=== PATIENT | female | born 1950 | race Caucasian/White ===

== ENCOUNTER → 2020-03-04 11:09 | Outpatient (BNVA) | payer MEDICARE, SELFPAY | PROVIDERS: PCP Internal Medicine; Visit Provider Hospitalist | DX: Z13.89 Encounter for screening for other disorder (principal) | CPT/HCPCS: Q3014 ==

== ENCOUNTER → 2020-03-15 14:43 | Outpatient (BNVA) | payer MEDICARE, SELFPAY | PROVIDERS: PCP Internal Medicine; Visit Provider Hospitalist | DX: U07.1 COVID-19 (principal); J40 Bronchitis, not specified as acute or chronic; J44.9 Chronic obstructive pulmonary disease, unspecified; G47.33 Obstructive sleep apnea (adult) (pediatric); R91.8 Other nonspecific abnormal finding of lung field; Z99.89 Dependence on other enabling machines and devices | CPT/HCPCS: Q3014 ==

== ENCOUNTER → 2020-04-20 11:07 | Outpatient (BNVA) | payer MEDICARE, SELFPAY | PROVIDERS: PCP Internal Medicine; Visit Provider Hospitalist | DX: Z13.89 Encounter for screening for other disorder (principal) | CPT/HCPCS: Q3014 ==

== ENCOUNTER → 2020-10-24 10:19 | Outpatient (BNVA) | payer MEDICARE, SELFPAY | PROVIDERS: PCP Internal Medicine; Visit Provider Hospitalist | DX: J41.0 Simple chronic bronchitis (principal); R91.8 Other nonspecific abnormal finding of lung field; G47.33 Obstructive sleep apnea (adult) (pediatric); Z99.89 Dependence on other enabling machines and devices | CPT/HCPCS: 99212 ==

== ENCOUNTER 2021-09-21 14:02 | Outpatient (REF) | payer MEDICARE, SELFPAY ==
--- NOTE | 2021-09-21 16:19 | PFT_ITS ---
INDICATION: Dyspnea. SPIROMETRY: FEV1 to FVC of 61% with an FEV1 of 1.75 L which is 76% predicted, an FVC of 2.87 L which is 95% predicted. No significant response to bronchodilators noted. Only a mild decrease in maximum voluntary ventilation secondary to likely deconditioning. LUNG VOLUMES: Total lung capacity 102% predicted. DIFFUSION CAPACITY: DLCO 75% predicted. COMPARISON: None. INTERPRETATION: There is a mild obstructive ventilatory defect, consistent with svsq-hc-[id number] COPD. No significant response to bronchodilators noted. Mild decrease in maximum voluntary ventilation secondary to deconditioning. Lung volumes are normal. The patient does have a mild diffusion impairment secondary to underlying parenchymal lung disease. Clinical correlation is warranted. Ector Howell MD MR/MODL / [id number]
== END 2021-09-21 14:03 | disposition home or self-care (01) ==
LOC: HO.RESP 14:02
PROVIDERS: PCP Internal Medicine; Visit Provider Hospitalist
DX: J41.0 Simple chronic bronchitis (principal); R06.00 Dyspnea, unspecified
CPT/HCPCS: 94060; 94727; 94729; 99212

== ENCOUNTER 2021-09-25 14:14 | Outpatient (REF) | payer MEDICARE, SELFPAY ==
--- NOTE | ~2021-09-25 | CT_ITS ---
EXAMINATION: CT CHEST WITHOUT CONTRAST CLINICAL INFORMATION: Simple chronic bronchitis COMPARISON: Reports from previous chest x-rays 2010 and 2013. Images not available for comparison. TECHNIQUE: Multidetector volumetric CT imaging of the chest was done. Axial MIP volume rendering provided. Sagittal and coronal reformatted images were obtained. This CT examination was performed using dose optimization techniques as appropriate, variously including the following: *Automated exposure control *Adjustment of mA and/or kV according to patient size (this includes techniques or standardized protocols for targeted exams where dose is matched to indication/reason for exam; i.e. extremities or head) *Use of iterative reconstruction technique DLP: 169 mGy-cm FINDINGS: LUNGS: There is bronchial wall thickening and clustered small peribronchial nodules and increased attenuation in the right middle lobe suggestive of airways disease. There are several clustered calcified nodules in the lingula, largest calcified nodules measuring 8 to 9 mm versus 1 versus 1 partially calcified nodule. Measured as 1 nodule this measures 0.8 x 1.2 cm coronal reconstructed image 31. There is atelectasis, mild bronchial wall thickening and clustered small peribronchial nodules in the lingula suggestive of airways disease. No evidence of emphysema. No endobronchial or endotracheal lesion. MEDIASTINUM: The mediastinum is normal. PLEURA: There is no pleural effusion. No pleural mass or thickening. AXILLA: No lymphadenopathy. UPPER ABDOMEN: There is fatty infiltration liver. There is a 2.5 cm cyst high in the dome of the liver OSSEOUS STRUCTURES: There are degenerative changes spine. CT/CT chest wo con IMPRESSION: Airways disease in the right middle lobe and lingula. Several clustered calcified nodules in the lingula versus 1 partially calcified nodule. Hamartoma and old granulomatous disease should be considered. Chest CT follow-up in one year recommended. Fleischner guidelines were followed.
== END 2021-09-25 14:15 | disposition home or self-care (01) ==
LOC: HO.CT 14:14
PROVIDERS: PCP Internal Medicine; Visit Provider Hospitalist
DX: J41.0 Simple chronic bronchitis (principal)
CPT/HCPCS: 71250

== ENCOUNTER → 2022-08-08 14:29 | Outpatient (BNVA) | payer MEDICARE, SELFPAY | PROVIDERS: PCP Internal Medicine; Visit Provider Nurse Practitioner Family | DX: J41.0 Simple chronic bronchitis (principal); G47.33 Obstructive sleep apnea (adult) (pediatric); Z99.89 Dependence on other enabling machines and devices | CPT/HCPCS: 99212 ==

== ENCOUNTER 2022-09-12 09:58 | Outpatient (REF) | payer MEDICARE, SELFPAY ==
--- NOTE | ~2022-09-12 | CT_ITS ---
EXAMINATION: CT CHEST WITHOUT CONTRAST CLINICAL INFORMATION: 71-year-old female with history of nonspecific abnormal finding of lung. COMPARISON: Chest CT from 09/25/2021. TECHNIQUE: Multidetector volumetric CT imaging of the chest was done. Axial MIP volume rendering provided. Sagittal and coronal reformatted images were obtained. This CT examination was performed using dose optimization techniques as appropriate, variously including the following: *Automated exposure control *Adjustment of mA and/or kV according to patient size (this includes techniques or standardized protocols for targeted exams where dose is matched to indication/reason for exam; i.e. extremities or head) *Use of iterative reconstruction technique DLP: 171 mGy-cm FINDINGS: LUNGS AND PLEURA: Mild centrilobular emphysema. Scattered foci of endobronchial mucus are present in both lungs. Chronic volume loss and peripheral opacities of scarring or atelectasis are present within the right middle lobe. Chronic mild atelectasis in inferior aspect of the lingula adjacent to the distal major fissure. There are stable mild subpleural reticular opacities in lower lung zones. An old stable cluster of calcified nodules within the inferior lingula is present, including focus measuring 0.8 cm AP (image 352, series 5), consistent with sequela of remote infection. A stable 0.3 cm noncalcified nodule is present in this region of the lingula (image 335, series 5). Also, a stable 0.3 cm solid noncalcified nodules present in the left lower lobe (image 277, series 5). No interval development of a suspicious lung nodule, mass or pleural effusion. CARDIOVASCULAR: The heart size is normal. No pericardial effusion. Pulmonary arteries and thoracic aorta are normal in caliber. CORONARY ARTERY CALCIFICATION: There is minimal atherosclerotic calcification of the left anterior descending coronary artery. MEDIASTINUM AND LOWER NECK: No mediastinal mass. The esophagus is unremarkable. There appear to be a few old small nodules and/or small foci of calcification of left thyroid lobe. No evidence of a clinically significant nodule. No thyroid imaging follow-up recommended.. LYMPHATICS: No pathologic sized lymph nodes. UPPER ABDOMEN: Diffuse hepatic steatosis. 2.8 cm simple cyst of hepatic segment 4A. SKELETAL AND CHEST WALL: Multilevel mild and moderate discovertebral degenerative change of the visualized lower cervical and thoracic spine. No acute or suspicious osseous abnormality. CT/CT chest wo IV con IMPRESSION: * Mild pulmonary emphysema. * Stable pulmonary nodules are compatible with sequela of remote infection/inflammation. No interval development of a suspicious lung nodule, mass or lymphadenopathy. * Diffuse hepatic steatosis.
== END 2022-09-12 09:59 | disposition home or self-care (01) ==
LOC: HO.CT 09:58
PROVIDERS: PCP Internal Medicine; Visit Provider Hospitalist
DX: R91.8 Other nonspecific abnormal finding of lung field (principal)
CPT/HCPCS: 71250

== ENCOUNTER 2022-09-25 14:11 | Outpatient (AMB) | payer MEDICARE, SELFPAY ==
[2022-09-25 14:16] VITALS: BP 128/70; PULSE 73; O2SAT 95; BMI 30.9
--- NOTE | 2022-09-25 14:16 | A.OFFVIS_ITS ---
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 She does have pulmonary nodules are being followed as well. Her last CT scan of the chest was back in September 2018 which appeared to be unchanged from before. Although the nodules are greater than a cm in size. In addition to that she has been taking the Symbicort the Spiriva. This combination has been very effective for her. She does have a rescue inhaler that she uses specially if is having humid has any difficulty with her breathing. Sometimes when she is exercising she has to use it. However, a bigger concern is that she is describing some heartburn-like symptoms specially when she is exercising and swimming. Symptoms may be lasting just minutes sometimes associated with some sour taste in her mouth to the some reflux. However, with her exercise-induced symptoms and her age and risk factors is not on reasonable to consider doing a cardiac stress test at this time. In regards to her CPAP the CPAP therapy has been affecting beneficial. She does use it for more than 4 hours a night. I did request a download and her AHI is down below 1 in appears to be working very good. We will not change her current settings of 4-18 APAP. 03/03/2020 the patient has a telephone visit today. She is under the weather. She started developing chills in addition to a croupy cough along with GI symptoms. Symptoms are suspicious for COVID-19. Her does live with her, but he was fully vaccinated and does not have any symptoms at this time. She was tested last night for COVID-19. She still waiting for the results. In the meantime she continues use her CPAP. CPAP therapy continues to be affecting beneficial. She did have to increase the humidity a little bit. At this point we talked about taking additional vitamins in addition to zinc in the patient be started on doxycycline for a postviral bacterial infection with worsening cough. If her COVID-19 test is positive, then, the patient is to call me will see if we can arrange for monoclonal antibody since the patient is considered high risk with respiratory condition. In addition to that she did have a CT scan of the chest in October 2019 demonstrating stable pulmonary nodules which is reassuring. 03/14/2020 the patient has a virtual visit today. She is status post mono clonal antibiotics for the COVID-19 infection. She did have significant symptoms with headaches fevers and chills right after the effusion. She also completed the dose of doxycycline. She has noticed increased coughing with chest congestion. Moderate severity. She has not been using her nebulizer or her rescue inhaler. I did advise her to do so because of the virus could be activating her COPD. Patient also was given a prescription for Decadron that she started this morning. She was concerned about starting a 2nd antibiotic, Augmentin. I have reassured her that were still treating her for postviral bacterial infections. She try the Augmentin for couple days and see if she can not tolerated. I also had her start Tessalon Perles to see if that alleviates her cough to some degree. The patient is almost out of cord team. When she has had according team she is able to get blood work and a chest x-ray. In the meantime if she notices any decreasing her pulse oximeter she has to go to the ER to be further evaluated. She did check her pulse ox this morning and later on today and she has been maintained pulse ox in the high 90s which is reassuring. Otherwise she is without any other complaints. 04/20/2020 the patient has a telephone visit. Overall she is feeling a lot better. She is slowly recovering. She still has some degree of fatigue. She gets very tired all of a sudden falls asleep during the daytime. She is starting to walk outside and exercise. She continues use her respiratory therapy she no longer needs her short-acting beta agonists regularly and just using it as needed. She did have an elevated D-dimer and did undergo a CT scan of the chest which is reassuring without any evidence of any thromboembolic disease. She continues use of melatonin at nighttime with good effect. She is also using the CPAP at nighttime. The CPAP therapy continues to be affecting beneficial. She does use it for more than 4 hours a night. In addition to that she is using aspirin 81 mg that she can feel comfortable stopping at this time. The patient is wondering about getting vaccinated now that she is getting better from does having COVID-19. I advised her to wait 3 months and then recheck antibiotics and see if she still has some. If she does she can hold off for a month or 2 to get vaccinated. She does not have any antibodies that she get vaccinated prior to any trips. She does have a trip planned to [place] in May. 10/24/2020 the patient is here for a pulmonary follow-up visit. She has been describing increasing shortness of breath with activity. [id number]-[id number] severity. She does continue to use her Symbicort and Spiriva which she has used for many years. They do provide some relief. She feels like she has recovered from the COVID infection that she had back in the late winter. She continues use her CPAP at nighttime. The CPAP therapy continues to be effective in beneficial. She is getting a dry mouth. This is likely from opening up her mouth and getting dry mucous membranes. She understands that this can result in gingival dryness in his to DKA. Therefore she needs to start using a chin strap. In addition to that I will adjust her humidity once able. I will provide the patient with a coupon for a free trial for Trelegy inhaler in the pes that she can try the inhaler and get more respiratory relief. We also reviewed her CT scan of the chest that she had back in March 2020. she has underlying pulmonary nodules. And does have been present for many years. Will plan to follow-up in 6 months with PFTs. I which point will discuss her follow- up CT scan. 09/21/2021 the patient is here for a pulmonary follow-up visit. We had switched her over to Trelegy inhaler during the last visit. She felt like her breathing got worse. She responded better to her Symbicort and Spiriva and she wishes to return to that treatment. She did undergo pulmonary function studies which we personally reviewed. It appears that she does have a moderate obstructive ventilatory defect consistent moderate COPD. All the pretty stable. She does have a mild diffusion impairment as well due to the underlying airway condition. She does have pulmonary nodules. Her last CT scan was back in March 2020. At this point will be reasonable to repeat her CT scans is wearing more than a year. 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 We have to make sure that this has not gotten any worse. Treatment for the mycobacterial disease only if the patient becomes symptomatic or if there is worsening findings on the CT scan. The patient continues use her CPAP. The CPAP therapy continues to be affecting beneficial. She does use it more than 4 hours a night. She is happy with her mask right now we do not have to make any changes at this time. Her DME company, [employer] has been very helpful in getting her supplies regularly. 09/25/2022 the patient is here for pulmonary follow-up visit. Overall the patient has been complaining of increasing shortness of breath. She has been using the Symbicort along with Spiriva. She has been having to use her rescue inhaler once or twice a week. She has not required any prednisone. The patient did have a CT scan of the chest recently which we personally reviewed. It appears that she has stable airspace disease. No significant changes in pulmonary nodule size. In regards of her sleep apnea she has been having issues which she is waking up more while using the CPAP. Feels like the CPAP is not working as effectively. She has had the CPAP now for more than 8 years. I did try to get some download information but is no longer transmitting information. Therefore, the patient does need to get a replacement CPAP at this time. will request form from her current DME company. The patient does travel she does have a travel mini resmed machine which is very effective for her when she travels. [facility] Medical History (Updated 09/21/21 @ 23:36 by Ector Howell MD) COPD (chronic obstructive pulmonary disease) COVID-19 GERD (gastroesophageal reflux disease) LUIS on CPAP Pulmonary nodules Social History Patient Tobacco Use Status: Never used Tobacco Review of Systems Const Denies chills, Reports difficulty sleeping, Denies excessive sweating, Denies fever(s) and Denies night sweats Eyes Denies dry eyes, Denies irritation and Denies itchy eyes ENT Reports Normal hearing present, Denies nasal discharge and Denies post nasal drip Card Denies chest pain, Denies chest pain at rest, Denies chest pain with activity, Denies leg edema, Denies dyspnea, Reports dyspnea on exertion, Denies orthopnea and Denies paroxysmal nocturnal dyspnea Resp Denies chest congestion, Reports cough, Denies excessive phlegm production, Denies pain on inspiration, Denies pain with cough, Denies dyspnea, Reports dyspnea on exertion, Denies stridor and Reports wheezing Musc Denies myalgias Neuro Reports Normal hearing present Endo Denies excessive sweating Ronald/Lymph Denies lymphadenopathy Aller/Immun Denies itchy eyes, Denies seasonal rhinorrhea and Reports wheezing Physical Exam Vital Signs: Last Vital Signs Pulse 73 09/25/22 14:16 BP 128/70 09/25/22 14:16 Pulse Ox 95 09/25/22 14:16 Oxygen Delivery Method Room Air 09/25/22 14:16 BMI result Body Mass Index 30.9 Const General: cooperative, healthy appearing, comfortable, no acute distress, well developed and alert Orientation/consciousness: patient oriented x3 Limitations: no limitations HEENT Head: Yes normal to inspection, Yes normocephalic and Yes atraumatic Ears: hearing grossly normal bilaterally and external ears normal Eyes General: appearance normal, both eyes and all related structures Eyelids: Yes eyelids normal Sclerae: sclerae normal EOM: EOMs intact bilaterally Neck Neck: Yes normal visual inspection and Yes no lymphadenopathy Lymphatic: no lymphadenopathy noted Chest Chest palpation & inspection: normal inspection of the chest Resp Effort & Inspection: normal respiratory effort, able to speak in complete sentences, no stridor, not tachypneic, no tripod positioning and no use of accessory muscles Auscultation: no wheezes and diminished lung sounds Cardio Jugular venous distension: no JVD Rate: regular rate Rhythm: regular rhythm Skin Other: warm, dry General skin exam: no rashes or lesions noted Neuro General: patient oriented x3 Cranial nerves: Yes Normal hearing present Cognition (Neuro): normal cognition Gait exam (Neuro): Normal gait present Extrem General: Yes normal to inspection, Yes capillary refill normal, Yes no clubbing, cyanosis or edema and Yes no pedal edema Psych Appearance: grossly normal and well kempt Speech and movement: Normal speech and movement present and Clear speech present Affect: normal affect Attitude: cooperative Thought process: Normal thought process present Thought content: Normal thought content present Insight: Good insight present (Psych) Judgement: Good judgement present (Psych) Assessment & Plan Assessment & Plan (1) COPD (chronic obstructive pulmonary disease): Code(s): J44.9 - Chronic obstructive pulmonary disease, unspecified Qualifiers: COPD type: chronic bronchitis Chronic bronchitis type: simple Qualified Code(s): J41.0 - Simple chronic bronchitis (2) LUIS on CPAP: Code(s): G47.33 - Obstructive sleep apnea (adult) (pediatric); Z99.89 - Dependence on other enabling machines and devices (3) Pulmonary nodules: Code(s): R91.8 - Other nonspecific abnormal finding of lung field Plan stop Symbicort and Spiriva start Breztri 2puff BID JESE as needed Continue APAP, with chin strap. will need a replacement APAP. Her machine is more than 8 years old and no longer working appropiately nor transmitting information. F/U 1 year Medications: New qbmqqidete-efpfvpqb-rapitpculr 160-9-4.8 mcg/actuation (Breztri Aerosphere) 2 inhalations inhalation BID 30 days 10.7 grams 11RF Coding Level of Care Code Est Pt Level 4 (21472) Diagnoses COPD (chronic obstructive pulmonary disease) J41.0 COPD type: chronic bronchitis Chronic bronchitis type: simple LUIS on CPAP G47.33; Z99.89 Pulmonary nodules R91.8 Time Spent (min) 20
== END 2022-09-25 14:56 | disposition home or self-care (01) ==
PROVIDERS: PCP Internal Medicine; Visit Provider Hospitalist
DX: J41.0 Simple chronic bronchitis (principal); G47.33 Obstructive sleep apnea (adult) (pediatric); Z99.89 Dependence on other enabling machines and devices; R91.8 Other nonspecific abnormal finding of lung field
CPT/HCPCS: 99214

== ENCOUNTER → 2022-09-25 14:11 | Outpatient (BNVA) | payer MEDICARE, SELFPAY | PROVIDERS: PCP Internal Medicine; Visit Provider Hospitalist | DX: J41.0 Simple chronic bronchitis (principal); G47.33 Obstructive sleep apnea (adult) (pediatric); R91.8 Other nonspecific abnormal finding of lung field | CPT/HCPCS: 99212 ==

== ENCOUNTER 2023-03-25 14:22 | Outpatient (AMB) | payer MEDICARE, SELFPAY ==
--- NOTE | 2023-03-25 14:31 | A.OFFVIS_ITS ---
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 She does have pulmonary nodules are being followed as well. Her last CT scan of the chest was back in September 2018 which appeared to be unchanged from before. Althou gh the nodules are greater than a cm in size. In addition to that she has been taking the Symbicort the Spiriva. This combination has been very effective for her. She does have a rescue inhaler that she uses specially if is having humid has any difficulty with her breathing. Sometimes when she is exercising she has to use it. However, a bigger concern is that she is describing some heartburn- like symptoms specially when she is exercising and swimming. Symptoms may be lasting just minutes sometimes associated with some sour taste in her mouth to the some reflux. However, with her exercise-induced symptoms and her age and risk factors is not on reasonable to consider doing a cardiac stress test at this time. In regards to her CPAP the CPAP therapy has been affecting beneficial. She does use it for more than 4 hours a night. I did request a download and her AHI is down below 1 in appears to be working very good. We will not change her current settings of 4-18 APAP. 03/03/2020 the patient has a telephone v GLG today. She is under the weather. She started developing chills in addition to a croupy cough along with GI symptoms. Symptoms are suspicious for COVID-19. Her does live with her, but he was fully vaccinated and does not have any symptoms at this time. She was tested last night for COVID-19. She still waiting for the results. In the meantime she continues use her CPAP. CPAP therapy continues to be affecting beneficial. She did have to increase the humidity a little bit. At this point we talked about taking additional vitamins in addition to zinc in the patient be started on doxycycline for a postviral bacterial infection with worsening cough. If her COVID-19 test is positive, then, the patient is to call me will see if we can arrange for monoclonal antibody since the patient is considered high risk with respiratory condition. In addition to that she did have a CT scan of the chest in October 2019 demonstrating stable pulmonary nodules which is reassuring. 03/14/2020 the patient has a virtual visit today. She is status post mono clonal antibiotics for the COVID-19 infection. She did have significant symptoms with headaches fevers and chills right after the effusion. She also completed the dose of doxycycline. She has noticed increased coughing with chest congestion. Moderate severity. She has not been using her nebulizer or her rescue inhaler. I did advise her to do so because of the virus could be activating her COPD. Patient also was given a prescription for Decadron that she started this morning. She was concerned about starting a 2nd antibiotic, Augmentin. I have reassured her that were still treating her for postviral bacterial infections. She try the Augmentin for couple days and see if she can not tolerated. I also had her start Tessalon Perles to see if that alleviates her cough to some degree. The patient is almost out of cord team. When she has had according team she is able to get blood work and a chest x-ray. In the meantime if she notices any decreasing her pulse oximeter she has to go to the ER to be further evaluated. She did check her pulse ox this morning and later on today and she has been maintained pulse ox in the high 90s which is reassuring. Otherwise she is without any other complaints. 04/20/2020 the patient has a telephone v isit. Overall she is feeling a lot better. She is slowly recovering. She still has some degree of fatigue. She gets very tired all of a sudden falls asleep during the daytime. She is starting to walk outside and exercise. She continues use her respiratory therapy she no longer needs her short-acting beta agonists regularly and just using it as needed. She did have an elevated D-dimer and did undergo a CT scan of the chest which is reassuring without any evidence of any thromboembolic disease. She continues use of melatonin at nighttime with good effect. She is also using the CPAP at nighttime. The CPAP therapy continues to be affecting beneficial. She does use it for more than 4 hours a night. In addition to that she is using aspirin 81 mg that she can feel comfortable stopping at this time. The patient is wondering about getting vaccinated now that she is getting better from does having COVID-19. I advised her to wait 3 months and then recheck antibiotics and see if she still has some. If she does she can hold off for a month or 2 to get vaccinated. She does not have any antibodies that she get vaccinated prior to any trips. She does have a trip planned to [place] in May. 10/24/2020 the patient is here for a pulmonary follow-up visit. She has been describing increasing shortness of breath with activity. [id number] severity. She does continue to use her Symbicort and Spiriva which she has used for many years. They do provide some relief. She feels like she has recovered from the COVID infection that she had back in the late winter. She continues use her CPAP at nighttime. The CPAP therapy continues to be effective in beneficial. She is getting a dry mouth. This is likely from opening up her mouth and getting dry mucous membranes. She understands that this can result in gingival dryness in his to DKA. Therefore she needs to start using a chin strap. In addition to that I will adjust her humidity once able. I will provide the patient with a coupon for a free trial for Trelegy inhaler in the hopes that she can try the inhaler and get more respiratory relief. We also reviewed her CT scan of the chest that she had back in March 2020. she has underlying pulmonary nodules. And does have been present for many years. Will plan to follow-up in 6 months with PFTs. I which point will discuss her follow- up CT scan. 09/21/2021 the patient is here for a pulmonary follow-up visit. We had switched her over to Trelegy inhaler during the last visit. She felt like her breathing got worse. She responded better to her Symbicort and Spiriva and she wishes to return to that treatment. She did undergo pulmonary function studies which we personally reviewed. It appears that she does have a moderate obstructive ventilatory defect consistent moderate COPD. All the pretty stable. She does have a mild diffusion impairment as well due to the underlying airway condition. She does have pulmonary nodules. Her last CT scan was back in March 2020. At this point will be reasonable to repeat her CT scans is wearing more than a year. 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 We have to make sure that this has not gotten any worse. Treatment for the mycobacterial disease only if the patient becomes symptomatic or if there is worsening findings on the CT scan. The patient continues use her CPAP. The CPAP therapy continues to be affecting beneficial. She does use it more than 4 hours a night. She is happy with her mask right now we do not have to make any changes at this time. Her DME company, [employer] has been very helpful in getting her supplies regularly. 09/25/2022 the patient is here for pulmonary follow-up visit. Overall the patient has been complaining of increasing shortness of breath. She has been using the Symbicort along with Spiriva. She has been having to use her rescue inhaler once or twice a week. She has not required any prednisone. The patient did have a CT scan of the chest recently which we personally reviewed. It appears that she has stable airspace disease. No significant changes in pulmonary nodule size. In regards of her sleep apnea she has been having issues which she is waking up more while using the CPAP. Feels like the CPAP is not working as effectively. She has had the CPAP now for more than 8 years. I did try to get some download information but is no longer transmitting information. Therefore, the patient does need to get a replacement CPAP at this time. will request form from her current DME company. The patient does travel she does have a travel mini resmed machine which is very effective for her when she travels. 03/25/2023 the patient is here for pulmon reid follow-up visit. Overall she is doing very well. The patient has been using her new APAP. The APAP AirSense 11 has not very affecting beneficial. Her AHI is down to 1.4. Her average pressure is close to 8.4 cm of water. She does average more than 4 hours a night. The therapy again has been affecting beneficial. The patient also continues have shortness breath with activity and cough. She has underlying chronic bronchitis and also COPD. She does well on Spiriva although is very expensive and not covered under her insurance. She did try Trelegy and also tried respiratory inhaler that was not effective for her. Therefore, she will go ahead and stick with the Spiriva and the Symbicort for now. The patient also had a CT scan of the chest last back in September 2022 which we personally reviewed and compared to the CT scan from 2021. She does have nodular disease bilaterally primarily in the lingula and also in the right middle lobe area. This is likely suggestive of smoldering infectious that she is mycobacterial disease. Will have her get further sputum samples from microbiology. The patient should have a repeat CT scan September 2023 to follow-up with the nodules. In the meantime she is going to continue with the current respiratory therapy and she will provide us with a sputum culture. [facility] Medical History (Updated 09/21/21 @ 23:36 by Ector Howell MD) COVID-19 LUIS on CPAP Pulmonary nodules GERD (gastroesophageal reflux disease) COPD (chronic obstructive pulmonary disease) Social History Patient Tobacco Use Status: Never used Tobacco Review of Systems Const Denies chills, Reports difficulty sleeping, Denies excessive sweating, Denies fever(s) and Denies night sweats Eyes Denies dry eyes, Denies irritation and Denies itchy eyes ENT Reports Normal hearing present, Denies nasal discharge and Denies post nasal drip Card Denies chest pain, Denies chest pain at rest, Denies chest pain with activity, Denies leg edema, Denies dyspnea, Reports dyspnea on exertion, Denies orthopnea and Denies paroxysmal nocturnal dyspnea Resp Denies chest congestion, Reports cough, Denies excessive phlegm production, Den ies pain on inspiration, Denies pain with cough, Denies dyspnea, Reports dyspnea on exertion, Denies stridor and Reports wheezing Musc Denies myalgias Neuro Reports Normal hearing present Endo Denies excessive sweating Ronald/Lymph Denies lymphadenopathy Aller/Immun Denies itchy eyes, Denies seasonal rhinorrhea and Reports wheezing Physical Exam Vital Signs: Last Vital Signs Pulse 69 03/25/23 14:32 BP 124/70 03/25/23 14:32 Pulse Ox 96 03/25/23 14:32 Oxygen Delivery Method Room Air 03/25/23 14:32 BMI result Body Mass Index 29.2 Const General: cooperative, healthy appearing, comfortable, no acute distress, well developed and alert Orientation/consciousness: patient oriented x3 Limitations: no limitations HEENT Head: Yes normal to inspection, Yes normocephalic and Yes atraumatic Ears: hearing grossly normal bilaterally and external ears normal Eyes General: appearance normal, both eyes and all related structures Eyelids: Yes eyelids normal Sclerae: sclerae normal EOM: EOMs intact bilaterally Neck Neck: Yes normal visual inspection and Yes no lymphadenopathy Lymphatic: no lymphadenopathy noted Chest Chest palpation & inspection: normal inspection of the chest Resp Effort & Inspection: normal respiratory effort, able to speak in complete sentences, no stridor, not tachypneic, no tripod positioning and no use of accessory muscles Auscultation: no wheezes and diminished lung sounds Cardio Jugular venous distension: no JVD Rate: regular rate Rhythm: regular rhythm Skin Other: warm, dry General skin exam: no rashes or lesions noted Neuro General: patient oriented x3 Cranial nerves: Yes Normal hearing present Cognition (Neuro): normal cognition Gait exam (Neuro): Normal gait present Extrem General: Yes normal to inspection, Yes capillary refill normal, Yes no clubbing, cyanosis or edema and Yes no pedal edema Psych Appearance: grossly normal and well kempt Speech and movement: Normal speech and movement present and Clear speech present Affect: normal affect Attitude: cooperative Thought process: Normal thought process present Thought content: Normal thought content present Insight: Good insight present (Psych) Judgement: Good judgement present (Psych) Results Reviewed Results Reviewed: [place] [id number] CT Scan Report Signed Patient: Jessica Moreno MR#: [id number] : 1950 Acct:[id number] Age/Sex: 71 / F ADM Date: 09/12/22 Loc: HO.CT Attending Dr: Ector Howell MD Ordering Physician: Georgette Black NP Date of Service: 09/12/22 Procedure(s): CT chest wo IV con Accession Number(s): [id number] cc: Georgette Black NP~ EXAMINATION: CT CHEST WITHOUT CONTRAST CLINICAL INFORMATION: 71-year-old female with history of nonspecific abnormal finding of lung. COMPARISON: Chest CT from 09/25/2021. TECHNIQUE: Multidetector volumetric CT imaging of the chest was done. Axial MIP volume rendering provided. Sagittal and coronal reformatted images were obtained. This CT examination was performed using dose optimization techniques as appropriate, variously including the following: *Automated exposure control *Adjustment of mA and/or kV according to patient size (this includes techniques or standardized protocols for targeted exams where dose is matched to indication/reason for exam; i.e. extremities or head) *Use of iterative reconstruction technique DLP: 171 mGy-cm FINDINGS: LUNGS AND PLEURA: Mild centrilobular emphysema. Scattered foci of endobronchial mucus are present in both lungs. Chronic volume loss and peripheral opacities of scarring or atelectasis are present within the right middle lobe. Chronic mild atelectasis in inferior aspect of the lingula adjacent to the distal major fissure. There are stable mild subpleural reticular opacities in lower lung zones. An old stable cluster of calcified nodules within the inferior lingula is present, including focus measuring 0.8 cm AP (image 352, series 5), consistent with sequela of remote infection. A stable 0.3 cm noncalcified nodule is present in this region of the lingula (image 335, series 5). Also, a stable 0.3 cm solid noncalcified nodules present in the left lower lobe (image 277, series 5). No interval development of a suspicious lung nodule, mass or pleural effusion. CARDIOVASCULAR: The heart size is normal. No pericardial effusion. Pulmonary arteries and thoracic aorta are normal in caliber. CORONARY ARTERY CALCIFICATION: There is minimal atherosclerotic calcification of the left anterior descending coronary artery. MEDIASTINUM AND LOWER NECK: No mediastinal mass. The esophagus is unremarkable. There appear to be a few old small nodules and/or small foci of calcification of left thyroid lobe. No evidence of a clinically significant nodule. No thyroid imaging follow-up recommended.. LYMPHATICS: No pathologic sized lymph nodes. UPPER ABDOMEN: Diffuse hepatic steatosis. 2.8 cm simple cyst of hepatic segment 4A. SKELETAL AND CHEST WALL: Multilevel mild and moderate discovertebral degenerative change of the visualized lower cervical and thoracic spine. No acute or suspicious osseous abnormality. CT/CT chest wo IV con IMPRESSION: * Mild pulmonary emphysema. * Stable pulmonary nodules are compatible with sequela of remote infection/inflammation. No interval development of a suspicious lung nodule, mass or lymphadenopathy. * Diffuse hepatic steatosis. Dictated By: Nilesh De Santiago MD Signed By: <Electronically signed by Nilesh De Santiago MD in OV> 09/18/22 0944 DD/ 1139 TD/TT: Rubber Chemist: Assessment & Plan Assessment & Plan (1) COPD (chronic obstructive pulmonary disease): Code(s): J44.9 - Chronic obstructive pulmonary disease, unspecified Qualifiers: COPD type: chronic bronchitis Chronic bronchitis type: simple Qualified Code(s): J41.0 - Simple chronic bronchitis (2) LUIS on CPAP: Code(s): G47.33 - Obstructive sleep apnea (adult) (pediatric); Z99.89 - Dependence on other enabling machines and devices (3) Pulmonary nodules: Code(s): R91.8 - Other nonspecific abnormal finding of lung field Plan continue Symbicort and Spiriva JESE as needed Continue APAP, with chin strap. sputum cx / AFB cx CT chest 09/2023 F/U September 2023 Orders: Orders Acid-fast Culture + Smear Today J44.9 - Chronic obstructive pulmonary disease, unspecified CT chest wo IV con 09/13/23 R91.8 - Other nonspecific abnormal finding of lung field Sputum Cult + Gram stain Today J44.9 - Chronic obstructive pulmonary disease, unspecified Coding Level of Care Code Est Pt Level 4 (58736) Diagnoses Simple chronic bronchitis J41.0 COPD type: chronic bronchitis Chronic bronchitis type: simple LUIS on CPAP G47.33; Z99.89 Pulmonary nodules R91.8 Time Spent (min) 19
[2023-03-25 14:32] VITALS: BP 124/70; PULSE 69; O2SAT 96; BMI 29.2
== END 2023-03-25 15:09 | disposition home or self-care (01) ==
PROVIDERS: PCP Internal Medicine; Visit Provider Hospitalist
DX: J41.0 Simple chronic bronchitis (principal); G47.33 Obstructive sleep apnea (adult) (pediatric); Z99.89 Dependence on other enabling machines and devices; R91.8 Other nonspecific abnormal finding of lung field
CPT/HCPCS: 99214

== ENCOUNTER → 2023-03-25 14:22 | Outpatient (BNVA) | payer MEDICARE, SELFPAY | PROVIDERS: PCP Internal Medicine; Visit Provider Hospitalist | DX: J41.0 Simple chronic bronchitis (principal); R91.8 Other nonspecific abnormal finding of lung field; G47.33 Obstructive sleep apnea (adult) (pediatric); Z99.89 Dependence on other enabling machines and devices | CPT/HCPCS: 99212 ==

== ENCOUNTER 2023-09-18 13:09 | Outpatient (REF) | payer MEDICARE, SELFPAY ==
--- NOTE | ~2023-09-18 | CT_ITS ---
EXAMINATION: CT CHEST WITHOUT CONTRAST CLINICAL INFORMATION: Follow up pulmonary nodules. COMPARISON: Prior CT examinations dated 09/30/2022 and 09/25/2021. TECHNIQUE: Multidetector volumetric CT imaging of the chest was done. Axial MIP volume rendering provided. Sagittal and coronal reformatted images were obtained. This CT examination was performed using dose optimization techniques as appropriate, variously including the following: *Automated exposure control *Adjustment of mA and/or kV according to patient size (this includes techniques or standardized protocols for targeted exams where dose is matched to indication/reason for exam; i.e. extremities or head) *Use of iterative reconstruction technique DLP: 151 mGy-cm FINDINGS: INSURANCE CHECKER: The lungs are symmetrically well-expanded and grossly clear. LUNGS: There is a grouping of numerous small tree in bud nodules within the right middle lobe, best seen on the MIP projection. These measure approximately 1-3 mm and are noncalcified. Within the posterior lingula, there are coarse benign, calcified granulomas. A few further scattered benign, calcified granulomas are noted within the bilateral lungs, best appreciated on the MIP sequence. This appearance is relatively stable from 09/25/2021. No new nodule, mass, infiltrate or groundglass opacity is seen. There is linear scar/subsegmental atelectasis within the right middle lobe and inferior lingula, without associated focal airway obstruction. No generalized increase is seen in peripheral interlobular septal markings. There is no generalized small airway thickening. The central airways appear patent. MEDIASTINUM: The mediastinum is normal. CORONARY ARTERY CALCIFICATION: None visualized on this study. PLEURA: There is no pleural effusion. No pleural mass or thickening. AXILLA: No lymphadenopathy. UPPER ABDOMEN: Benign, simple hepatic cysts are redemonstrated. These require no imaging follow-up. The adrenal glands are unremarkable. OSSEOUS STRUCTURES: There is multi-level thoracic spondylosis. No acute or aggressive osseous finding is noted. CT/CT chest wo IV con IMPRESSION: 1. There are benign, stable calcified and noncalcified nodules, as detailed. Small noncalcified nodules within the right middle lobe show tree-in-bud arrangements, suggesting small airways or small vessel disease related to an infectious or inflammatory etiology. Please correlate clinically. The interim stability of these findings from 09/25/2021 suggests a benign process. No further imaging follow-up is recommended. According to the UPDATED 2017 Fleischner Society recommendations, the advised follow-up imaging for solid nodules < 6 mm is: LOW RISK PATIENT: No routine follow-up. HIGH RISK PATIENT: Optional CT at 12 months. 2. No new nodule, mass, infiltrate or groundglass opacity is seen. 3. There is linear scar/subsegmental atelectasis at the anterior bases, without associated focal airway obstruction. 4. No thoracic lymphadenopathy or pleural effusion is seen. 5. There is multi-level thoracic spondylosis, without acute or aggressive finding seen. Fleischner guidelines were followed. Electronically signed by: Moris Hylton MD 10/16/2023 12:28 PM EDT
== END 2023-09-18 13:10 | disposition home or self-care (01) ==
LOC: HO.CT 13:09
PROVIDERS: PCP Internal Medicine; Visit Provider Hospitalist
DX: R91.8 Other nonspecific abnormal finding of lung field (principal)
CPT/HCPCS: 71250

== ENCOUNTER 2023-10-03 14:16 | Outpatient (AMB) | payer MEDICARE, SELFPAY ==
[2023-10-03 14:22] VITALS: PULSE 79; O2SAT 95; BMI 29.2
--- NOTE | 2023-10-03 14:22 | MHC.OFFVIS ---
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 She does have pulmonary nodules are being followed as well. Her last CT scan of the chest was back in September 2018 which appeared to be unchanged from before. Although the nodules are greater than a cm in size. In addition to that she has been taking the Symbicort the Spiriva. This combination has been very effective for her. She does have a rescue inhaler that she uses specially if is having humid has any difficulty with her breathing. Sometimes when she is exercising she has to use it. However, a bigger concern is that she is describing some heartburn-like symptoms specially when she is exercising and swimming. Symptoms may be lasting just minutes sometimes associated with some sour taste in her mouth to the some reflux. However, with her exercise-induced symptoms and her age and risk factors is not on reasonable to consider doing a cardiac stress test at this time. In regards to her CPAP the CPAP therapy has been affecting beneficial. She does use it for more than 4 hours a night. I did request a download and her AHI is down below 1 in appears to be working very good. We will not change her current settings of 4-18 APAP. 03/25/2023 the patient is here for pulmonary follow-up visit. Overall she is doing very well. The patient has been using her new APAP. The APAP AirSense 11 has not very affecting beneficial. Her AHI is down to 1.4. Her average pressure is close to 8.4 cm of water. She does average more than 4 hours a night. The therapy again has been affecting beneficial. The patient also continues have shortness breath with activity and cough. She has underlying chronic bronchitis and also COPD. She does well on Spiriva although is very expensive and not covered under her insurance. She did try Trelegy and also tried respiratory inhaler that was not effective for her. Therefore, she will go ahead and stick with the Spiriva and the Symbicort for now. The patient also had a CT scan of the chest last back in September 2022 which we personally reviewed and compared to the CT scan from 2021. She does have nodular disease bilaterally primarily in the lingula and also in the right middle lobe area. This is likely suggestive of smoldering infectious that she is mycobacterial disease. Will have her get further sputum samples from microbiology. The patient should have a repeat CT scan September 2023 to follow-up with the nodules. In the meantime she is going to continue with the current respiratory therapy and she will provide us with a sputum culture. 10/03/2023 the patient is here for a pulmonary follow-up visit. Overall the patient has been doing okay. She has been also active with exercise swimming and playing pickleball and walking. Sometimes she does have to use her rescue inhaler. She has noticed that she has had to use a little bit more often typically around twice a week. She sometimes pretreated before her pickleball tournaments. The patient also continues on the Symbicort. She is doing 1 puff of the Spiriva. In view of her ongoing symptoms she is going to maximize her respiratory therapy by increasing the Spiriva to 2 inhalations daily. We also talked about other potential triple agents but she did not do good with powder and she rather stay on the medications that she is taking since she tolerates it very well. She also had a CT scan of the chest to follow-up with the pulmonary nodules. We personally reviewed in the office in compared to her previous CT scan. No significant changes and no significant changes in the pulmonary nodule which is reassuring. She has had this nodule now for several years identified without any significant changes. Likely mycobacterial disease. Will go ahead and request another sputum for AFB and culture. From a CPAP standpoint she is struggling with her mask. She is opening up her mouth she is getting some air leakage. The patient did try a chinstrap was not effective. She needs a fullface mask. Will did provide her with a small F30 I mask. She is going to try and let us know if it works well for her and at that point we can order it for her from her [employer] company. But she does use the machine every night for more than 4 hours with very good adherence of 100%. Her AHI is down to 1.5 and her current settings are adequate. [facility] Medical History (Updated 09/21/21 @ 23:36 by Ector Howell MD) COVID-19 LUIS on CPAP Pulmonary nodules GERD (gastroesophageal reflux disease) COPD (chronic obstructive pulmonary disease) Social History Patient Tobacco Use Status: Never used Tobacco Review of Systems Const Denies chills, Reports difficulty sleeping, Denies excessive sweating, Denies fever(s) and Denies night sweats Eyes Denies dry eyes, Denies irritation and Denies itchy eyes ENT Reports Normal hearing present, Denies nasal discharge and Denies post nasal drip Card Denies chest pain, Denies chest pain at rest, Denies chest pain with activity, Denies leg edema, Denies dyspnea, Reports dyspnea on exertion, Denies orthopnea and Denies paroxysmal nocturnal dyspnea Resp Denies chest congestion, Reports cough, Denies excessive phlegm production, Denies pain on inspiration, Denies pain with cough, Denies dyspnea, Reports dyspnea on exertion, Denies stridor and Reports wheezing Musc Denies myalgias Neuro Reports Normal hearing present Endo Denies excessive sweating Ronald/Lymph Denies lymphadenopathy Aller/Immun Denies itchy eyes, Denies seasonal rhinorrhea and Reports wheezing Physical Exam Vital Signs: Last Vital Signs Pulse 79 10/03/23 14:22 Pulse Ox 95 10/03/23 14:22 Oxygen Delivery Method Room Air 10/03/23 14:22 BMI result Body Mass Index 29.2 Const General: cooperative, healthy appearing, comfortable, no acute distress, well developed and alert Orientation/consciousness: patient oriented x3 Limitations: no limitations HEENT Head: Yes normal to inspection, Yes normocephalic and Yes atraumatic Ears: hearing grossly normal bilaterally and external ears normal Eyes General: appearance normal, both eyes and all related structures Eyelids: Yes eyelids normal Sclerae: sclerae normal EOM: EOMs intact bilaterally Neck Neck: Yes normal visual inspection and Yes no lymphadenopathy Lymphatic: no lymphadenopathy noted Chest Chest palpation & inspection: normal inspection of the chest Resp Effort & Inspection: normal respiratory effort, able to speak in complete sentences, no stridor, not tachypneic, no tripod positioning and no use of accessory muscles Auscultation: no wheezes and diminished lung sounds Cardio Jugular venous distension: no JVD Rate: regular rate Rhythm: regular rhythm Skin Other: warm, dry General skin exam: no rashes or lesions noted Neuro General: patient oriented x3 Cranial nerves: Yes Normal hearing present Cognition (Neuro): normal cognition Gait exam (Neuro): Normal gait present Extrem General: Yes normal to inspection, Yes capillary refill normal, Yes no clubbing, cyanosis or edema and Yes no pedal edema Psych Appearance: grossly normal and well kempt Speech and movement: Normal speech and movement present and Clear speech present Affect: normal affect Attitude: cooperative Thought process: Normal thought process present Thought content: Normal thought content present Insight: Good insight present (Psych) Judgement: Good judgement present (Psych) Results Reviewed Results Reviewed: personally reviewed CT chest 09/2023 and compared to previous CT chest. pulmonary nodules are able, chronic airway disease RML/DG areas Assessment & Plan Assessment & Plan (1) COPD (chronic obstructive pulmonary disease): Code(s): J44.9 - Chronic obstructive pulmonary disease, unspecified Category: Medical Qualifiers: COPD type: chronic bronchitis Chronic bronchitis type: simple Qualified Code(s): J41.0 - Simple chronic bronchitis (2) LUIS on CPAP: Code(s): G47.33 - Obstructive sleep apnea (adult) (pediatric); Z99.89 - Dependence on other enabling machines and devices Category: Medical (3) Pulmonary nodules: Code(s): R91.8 - Other nonspecific abnormal finding of lung field Category: Medical (4) Bronchitis: Code(s): J40 - Bronchitis, not specified as acute or chronic Category: Medical Plan continue Symbicort increase Spiriva 1->2puff daily JESE as needed Continue APAP, trial F301 small mask sputum cx / AFB cx CT chest 09/2023 stable/unchanged F/U in 12 months Orders: Orders Acid-fast Culture + Smear Today J40 - Bronchitis, not specified as acute or chronic Sputum Cult + Gram stain Today J40 - Bronchitis, not specified as acute or chronic Coding Level of Care Code Est Pt Level 4 (95144) Complex EM visit Add On G2211 Diagnoses Simple chronic bronchitis J41.0 COPD type: chronic bronchitis Chronic bronchitis type: simple LUIS on CPAP G47.33; Z99.89 Pulmonary nodules R91.8 Bronchitis J40 Time Spent (min) 18
== END 2023-10-03 15:13 | disposition home or self-care (01) ==
PROVIDERS: PCP Internal Medicine; Visit Provider Hospitalist
DX: J41.0 Simple chronic bronchitis (principal); G47.33 Obstructive sleep apnea (adult) (pediatric); Z99.89 Dependence on other enabling machines and devices; R91.8 Other nonspecific abnormal finding of lung field; J40 Bronchitis, not specified as acute or chronic
CPT/HCPCS: 99214; G2211

== ENCOUNTER → 2023-10-03 14:16 | Outpatient (BNVA) | payer MEDICARE, SELFPAY | PROVIDERS: PCP Internal Medicine; Visit Provider Hospitalist | DX: J41.0 Simple chronic bronchitis (principal); G47.33 Obstructive sleep apnea (adult) (pediatric); R91.8 Other nonspecific abnormal finding of lung field; J40 Bronchitis, not specified as acute or chronic; Z99.89 Dependence on other enabling machines and devices | CPT/HCPCS: 99212 ==

== ENCOUNTER 2023-12-20 13:18 | Outpatient (AMB) | payer MEDICARE, SELFPAY ==
--- NOTE | 2023-12-20 13:14 | MHC.OFFVIS ---
Vital Signs 12/20/23 13:19 Height 5 ft 4 in Weight 192 lb 2 oz BMI 33.0 BP 108/62 Blood Pressure Location Rt brachial Position Sitting Pulse 76 Pulse Source Pulse Oximeter Pulse Oximetry (%) 96 Oxygen Delivery Method Room Air Intake Visit Reasons: cough Allergies Avelox Allergy (Severe, Uncoded 12/20/23 13:21) Rash HPI HPI cough: Details: Jessica is a pleasant 71 year old female followed for COPD and LUIS on CPAP therapy. She is well controlled at baseline on Symbicort and Spiriva. She is under the care of Dr. Howell and presents today for an acute visit. She contracted COVID a few weeks ago, mostly with body aches and fatigue, denied respiratory symptoms. However over the last week or two has developed a more persistent dry cough and increased dyspnea, responding well to albuterol. She denies any fevers, chills and reports possible sick contacts. She denies seasonal allergies however reports symptoms suggestive of allergies. She has not trialed any OTC antihistamines or nasal sprays. [facility] Medical History (Updated 12/23/23 @ 17:14 by Georgette Black NP) COVID-19 LUIS on CPAP Pulmonary nodules GERD (gastroesophageal reflux disease) COPD (chronic obstructive pulmonary disease) Social History Patient Tobacco Use Status: Never used Tobacco Review of Systems Const Denies chills, Denies excessive sweating, Denies fever(s), Denies headache(s) and Denies night sweats Eyes Denies dry eyes, Denies irritation and Denies itchy eyes ENT Reports Normal hearing present, Denies headache(s), Denies nasal congestion, Denies nasal discharge and Denies sore throat Card Denies chest pain, Denies chest pain at rest, Denies chest pain with activity, Denies claudication, Denies leg edema, Denies dyspnea, Denies orthopnea and Denies paroxysmal nocturnal dyspnea Resp Denies chest congestion, Denies excessive phlegm production, Denies pain on inspiration, Denies pain with cough, Denies dyspnea, Denies stridor and Denies wheezing Musc Denies myalgias Neuro Reports Normal hearing present and Denies headache(s) Endo Denies excessive sweating Ronald/Lymph Denies lymphadenopathy Aller/Immun Denies itchy eyes, Denies seasonal rhinorrhea and Denies wheezing Physical Exam Vital Signs: Last Vital Signs Pulse 76 12/20/23 13:19 BP 108/62 12/20/23 13:19 Pulse Ox 96 12/20/23 13:19 Oxygen Delivery Method Room Air 12/20/23 13:19 BMI result Body Mass Index 33.0 Const General: cooperative, healthy appearing, comfortable, no acute distress, well developed and alert Nutritional Appearance: obese Orientation/consciousness: patient oriented x3 Limitations: no limitations HEENT Head: Yes normal to inspection, Yes normocephalic and Yes atraumatic Ears: hearing grossly normal bilaterally and external ears normal Eyes General: appearance normal, both eyes and all related structures Eyelids: Yes eyelids normal Sclerae: sclerae normal EOM: EOMs intact bilaterally Neck Neck: Yes normal visual inspection and Yes no lymphadenopathy Lymphatic: no lymphadenopathy noted Chest Chest palpation & inspection: normal inspection of the chest Resp Effort & Inspection: normal respiratory effort, able to speak in complete sentences, no audible wheezes, no cough, no stridor, not tachypneic, no tripod positioning and no use of accessory muscles Auscultation: clear to auscultation bilaterally Cardio Jugular venous distension: no JVD Rate: regular rate Rhythm: regular rhythm Skin Other: warm, dry General skin exam: no rashes or lesions noted Neuro General: patient oriented x3 Cranial nerves: Yes Normal hearing present Cognition (Neuro): normal cognition Gait exam (Neuro): Normal gait present Extrem General: Yes normal to inspection, Yes capillary refill normal, Yes no clubbing, cyanosis or edema and Yes no pedal edema Psych Appearance: grossly normal and well kempt Speech and movement: Normal speech and movement present and Clear speech present Affect: normal affect Attitude: cooperative Thought process: Normal thought process present Thought content: Normal thought content present Insight: Good insight present (Psych) Judgement: Good judgement present (Psych) Assessment & Plan Assessment & Plan (1) COPD (chronic obstructive pulmonary disease): Code(s): J44.9 - Chronic obstructive pulmonary disease, unspecified Category: Medical Qualifiers: COPD type: chronic bronchitis Chronic bronchitis type: simple Qualified Code(s): J41.0 - Simple chronic bronchitis (2) Environmental allergies: Code(s): Z91.09 - Other allergy status, other than to drugs and biological substances Category: Medical Plan At this time, Jessica's symptoms are likely related to an allergic component. Advised to trial nasal spray and daily antihistamine. Patient aware if symptoms do not improve to contact the office. Will follow up with Dr. Howell at her regularly scheduled appointment or sooner if needed. All questions were answered and patient is in agreement of plan. Medications: New ipratropium bromide administer into each nostril 2 sprays intranasal BID 30 mL 3RF tiotropium bromide (Spiriva with HandiHaler) puncture 1 cap using device; one dose = 2 inhalations 1 cap inhalation DAILY 60 inhalations 6RF Refilled albuterol sulfate 90 mcg/actuation 2 puffs inhalation Q4-6H PRN 1 ea 3RF shortness of breath or wheezing albuterol sulfate 2.5 mg (3 mL) inhalation DAILY 90 mL 11RF 30 days J41.0 - Simple chronic bronchitis Coding Level of Care Code Est Pt Level 3 (40594) Diagnoses Simple chronic bronchitis J41.0 COPD type: chronic bronchitis Chronic bronchitis type: simple Environmental allergies Z91.09
[2023-12-20 13:19] VITALS: BP 108/62; PULSE 76; O2SAT 96; BMI 33.0
== END 2023-12-20 13:44 | disposition home or self-care (01) ==
PROVIDERS: PCP Internal Medicine; Visit Provider Nurse Practitioner Family
DX: J41.0 Simple chronic bronchitis (principal); Z91.09 Other allergy status, other than to drugs and biological substances
CPT/HCPCS: 99213

== ENCOUNTER → 2023-12-20 13:18 | Outpatient (BNVA) | payer MEDICARE, SELFPAY | PROVIDERS: PCP Internal Medicine; Visit Provider Nurse Practitioner Family | DX: J41.0 Simple chronic bronchitis (principal); Z91.09 Other allergy status, other than to drugs and biological substances | CPT/HCPCS: 99212 ==

== ENCOUNTER 2024-10-02 11:08 | Outpatient (AMB) | payer MEDICARE, SELFPAY ==
--- OUTSIDE RECORDS SUMMARY | 2024-10-01 23:59 | XMS_ITS | Continuity of Care Document ---
Author Organization [facility] [place] [address] [place] [address]- Care Team Providers Care Special Education Resource Teacher Name Role Phone Yesica Guerrero MD Primary Care Physician [phone] Encounter 09/24/24 - 10/01/24 [facility] [address], [address] [place], [place] [address] Attending Physician: Yesica Guerrero MD Admitting Physician: Yesica Guerrero MD Referring Physician: Yesica Guerrero MD Encounter Type: OutPatient One Time Allergies, Adverse Reactions, Alerts Substance Criticality Severity Reaction Reaction Severity Status moxifloxacin Eruption Active Avelox Active Immunizations Given and Recorded Vaccine Date Status Refusal Reason pneumococcal 20-valent conjugate vaccine 01/27/24 Recorded influenza virus vaccine, inactivated 12/03/23 Delfin rded influenza virus vaccine, inactivated 01/04/23 Delfin rded influenza virus vaccine, inactivated 12/11/21 Delfin rded influenza virus vaccine, inactivated 11/30/20 Delfin rded influenza virus vaccine, inactivated 12/02/18 Delfin rded RSV vaccine preF3, recombinant 01/18/23 Recorded SARS-CoV-2(COVID-19)mRNA-LNP vac([id number]) 01/11/23 Recorded tetanus/diphtheria/pertussis, acel(Tdap) 09/19/22 Recorded [id number] 12y+ bivalent booster vax 01/16/22 Recorded SARS-CoV-2 (COVID-19) mRNA-1273 vaccine 08/09/21 R ecorded SARS-CoV-2 (COVID-19) mRNA BNT-162b2 vac 06/30/20 Recorded SARS-CoV-2 (COVID-19) mRNA BNT-162b2 vac 06/09/20 Recorded zoster vaccine, inactivated 04/03/19 Recorded zoster vaccine, inactivated 12/12/18 Recorded Medications Albuterol (Eqv-ProAir HFA) 90 mcg/inh inhalation aerosol 2 puffs, Inhalation, Every 6 hours, 0 Refills, Maintenance, 04/12/22 10:56:00 AM EST, Partial fill upon patient request if the prescription is for a schedule II opioid drug. Start Date: 04/12/22 Status: Ordered Repeat number: 1 atorvastatin 40 mg oral tablet 1 tablet, By Mouth, Daily, # 90 tablet, 1 Refills, Maintenance, 08/07/24 6:52:00 AM EDT, [id number], 162.56, cm, 06/02/24 9:19:00 EDT, Height Start Date: 08/07/24 Status: Ordered Quantity: 90.0 Unit: tablet Repeat number: 1 Atrovent HFA 17 mcg/inh inhalation aerosol 0 Refills, Maintenance, 08/10/24 10:50:00 AM EDT, Partial fill upon patient request if the prescription is for a schedule II opioid drug. Start Date: 08/10/24 Status: Ordered Repeat number: 1 budesonide-formoterol 160 mcg-4.5 mcg/inh inhalation aerosol with adapter 2, puffs, Inhalation, 2 times a day, X90 DAYS., # 30.6 each, Refills 1, Maintenance, 04/22/24 3:49:00 PM EDT, Route to Pharmacy Electronically, [id number], [id number], 162.56, cm, 03/16/24 12:12:00 EST, Height Start Date: 04/22/24 Status: Ordered Quantity: 30.6 Unit: each Repeat number: 1 CPAP Exhauster, 04/12/22 10:59:00 AM EST, Supply Start Date: 04/12/22 Status: Ordered Repeat number: 1 estradiol 0.05 mg/24 hours weekly transdermal film, extended release 1 patch, Topically, Every week, # 12 patch, 3 Refills, Maintenance, 07/03/24 11:10:00 AM EDT, Patch,[id number], Partial fill upon patient request if the prescription is for a schedule II opioid drug., 162.56, cm, 06/02/24 9:19:00 EDT, Height Start Date: 07/03/24 Status: Ordered Quantity: 12.0 Unit: patch Repeat number: 4 Indications: Hormone replacement therapy; Misc Rx Refills 0, Maintenance, 06/02/24 8:45:00 AM EDT, Supply Start Date: 06/02/24 Status: Ordered Repeat number: 1 progesterone 100 mg oral capsule 1 capsule = 100 mg, By Mouth, Daily at bedtime, # 90 capsule, 2 Refills, Maintenance, 06/02/24 10:20:00 AM EDT, Capsule, [id number], Partial fill upon patient request if the prescription is for a schedule II opioid drug., 162.56, cm, 06/02/24 9:19:00 EDT, Height Start Date: 06/02/24 Status: Ordered Quantity: 90.0 Unit: capsule Repeat number: 3 Indications: Hormone replacement therapy; Spiriva HandiHaler 18 mcg inhalation capsule 1 capsule = 18 mcg, Inhalation, Daily, # 90 capsule, 3 Refills, Maintenance, 11/15/22 4:41:00 PM EDT, [id number], Partial fill upon patient request if the prescription is for a schedule II opioid drug., 162.56, cm, 06/21/22 11:17:00 EDT, Height, 87.5, kg, 06/16/21 11:02:00 EDT, Dry Weight Start Date: 11/15/22 Status: Ordered Quantity: 90.0 Unit: capsule Repeat number: 4 Vitamin D3 2000 intl units oral capsule 1 capsule = 50 mcg, By Mouth, Daily, # 60 capsule, 0 Refills, Maintenance, 04/12/22 11:14:00 AM EST, Capsule, Partial fill upon patient request if the prescription is for a schedule II opioid drug. Start Date: 04/12/22 Status: Ordered Quantity: 60.0 Unit: capsule Repeat number: 1 Problem List Condition Confirmation Course Effective Dates Status Health Status Informant Chronic headaches Confirmed Active Chronic obstructive pulmonary disease Confirmed Active Hormone replacement therapy Confirmed Active Body aches Confirmed Active TYLER (generalized anxiety disorder) Confirmed Active Hypercholesterolemia Confirmed Active IFG (impaired fasting glucose) Confirmed Active Obese class I Confirmed Active Osteopenia Confirmed 05/24/22 Active Colon polyps Confirmed Active Sleep apnea Confirmed Active Fatty liver Confirmed Active Social History Social History Type Response Smoking Status Never (less than 100 in lifetime) entered on: 04/12/22 Sex Sex Representation Female (finding) Patient Care team information Care Team Personnel Name: Yesica Guerrero MD Position: S Physician - Primary Care Member Role: PCP Address: [address] [place] [address] [address] Telecom: Care Team Related Persons Name: SHERI LEACH Name: MILENA CAMERON Insurance Providers Guarantor name: DAWIT CAMERON Health Plan Information #: 1 Payer: MEDICARE B Payer Identifier: JÚNIOR Member Number: [id number] Group Number: [id number] Subscriber Identifier: [id number] Relationship to Subscriber: self Coverage Type: NA Coverage Verification Date: NA Telecom: NA Address: Health Plan Information #: 2 Payer: MEDEX SECONDARY ONLY Payer Identifier: NA Member Number: [id number] Group Number: [id number] Subscriber Identifier: [id number] Relationship to Subscriber: self Coverage Type: Medicare Other Coverage Verification Date: NA Telecom: NA Address:
--- OUTSIDE RECORDS SUMMARY | 2024-10-02 11:12 | XMS_ITS | Clinical Summary ---
Author Organization [facility] Address [address] [place] [id number] Care Team Providers Care Entry Manager Name Role Phone Olga Will MD Primary Care Provider [phone] Surgical History Surgery Date Site/Laterality Comments OTHER SURGICAL HISTORY PROCEDURE: PULMONOLOGY BRONCHOSCOPY; COMMENT: 2016, neg malignancy, + MAC Medical History Medical History Date Comments COPD (chronic obstructive pu lmonary disease) ([facility] V24, [facility] V28) 02/07/2017 DX:COPD (chronic o bstructive pulmonary disease) ([facility]) Lung nodule 02/07/2017 DX:Lung nodule History of sepsis 02/07/2017 DX:History of sepsis Tubular adenoma 02/07/2017 DX:Tubular adeno ma Kidney stone 02/07/2017 DX:Kidney stone Hyperlipidemia 02/07/2017 DX:Hyperlipidemi a Bronchiolitis due to respira tory syncytial virus (RSV) 03/16/2016 DX:Bronchiolitis due to resp iratory syncytial virus (RSV) Mycobacterium avium complex ([facility] V24, [facility] V28) 03/14/2017 DX:Mycobacterium avium compl ex ([facility]) Obstructive sleep apnea synd darion in adult 05/04/2016 DX:Obstructive sleep apnea s yndrome in adult Post-nasal drip 05/28/2017 DX:Post-nasal dr ip History of pneumonia 05/28/2017 DX:History of pneumonia; COMMENT: Requiring hospitalization in 1994 Social History Tobacco Use Types Packs/Day Years Used Date Smoking Tobacco: Never Smokeless Tobacco: Never Comments Unknown Sex and Gender Information Value Date Recorded Sex Assigned at Not on file Legal Sex Female 2:01 AM EST Gender Identity Not on file Sexual Orientation Not on file Obstetrics History Plan of Treatment Health Maintenance Due Date Last Done Comments Breast Cancer Screening 1950 DTaP,Tdap,and Td Vaccines (1 - Tdap) 10/11/1970 Pneumococcal Vaccine: 50+ Ye ars (1 of 1 - PCV) 10/11/2001 Zoster Vaccines (1 of 2) 10/11/2001 COVID-19 Vaccine (1 - 2023-2 5 season) 2023 Depression Screening 02/12/2024 Influenza Vaccine (#1) 2024 RSV Immunization Adult Patie nts (1 - 1-dose 75+ series) 10/11/2026 HIB Vaccines Aged Out No longer eligi ble based on patient's age to complete this topic HPV Vaccines Aged Out No longer eligi ble based on patient's age to complete this topic Hepatitis A Vaccines Aged Out No long er eligible based on patient's age to complete this topic Hepatitis B Vaccines Aged Out No long er eligible based on patient's age to complete this topic IPV Vaccines Aged Out No longer eligi ble based on patient's age to complete this topic MMR Vaccines Aged Out No longer eligi ble based on patient's age to complete this topic Meningococcal ACWY Vaccine Aged Out N o longer eligible based on patient's age to complete this topic Meningococcal B Vaccine Aged Out No l onger eligible based on patient's age to complete this topic RSV Immunization Patients Un ben 20 months Aged Out No longer eligible b ased on patient's age to complete this topic Varicella Vaccines Aged Out No longer eligible based on patient's age to complete this topic Care Teams Entry Manager Relationship Specialty Start Date End Date Olga Will MD [address] [place] [address] PCP - General Internal Medicine 08/07/18
--- OUTSIDE RECORDS SUMMARY | 2024-10-02 11:12 | XMS_ITS | Encounter Summary ---
Author Organization [facility] Address [address] [place] [phone] Phone Care Team Providers Care Tar Heat Exchanger Cleaner Name Role Phone Olga Will MD Primary Care Provider [phone] Encounter Details Date Type Department Care Team (Late st Contact Info) Description 08/22/2017 Procedure Pass [facility] [address] [place] [address] Social History Tobacco Use Types Packs/Day Years Used Date Smoking Tobacco: Never Assessed Comments Unknown Sex and Gender Information Value Date Recorded Sex Assigned at Female 03/06/2020 2:28 PM EST Legal Sex Female 3:03 PM EST Gender Identity Not on file Sexual Orientation Not on file documented as of this encounter Plan of Treatment Not on file documented as of this encounter Visit Diagnoses Not on filedocumented in this encounter Care Teams Tar Heat Exchanger Cleaner Relationship Specialty Start Date End Date Olga Will MD [address] [place] [id number] PCP - General Internal Medicine 03/25/17 documented as of this encounter Additional Source Comments The information contained in this document represents components of the legal health record. It is not the complete legal health record.[facility]
[2024-10-02 11:14] VITALS: BP 114/60; PULSE 69; O2SAT 97; BMI 30.6
--- NOTE | 2024-10-02 11:14 | MHC.OFFVIS ---
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 She does have pulmonary nodules are being followed as well. Her last CT scan of the chest was back in September 2018 which appeared to be unchanged from before. Although the nodules are greater than a cm in size. In addition to that she has been taking the Symbicort the Spiriva. This combination has been very effective for her. She does have a rescue inhaler that she uses specially if is having humid has any difficulty with her breathing. Sometimes when she is exercising she has to use it. However, a bigger concern is that she is describing some heartburn-like symptoms specially when she is exercising and swimming. Symptoms may be lasting just minutes sometimes associated with some sour taste in her mouth to the some reflux. However, with her exercise-induced symptoms and her age and risk factors is not on reasonable to consider doing a cardiac stress test at this time. In regards to her CPAP the CPAP therapy has been affecting beneficial. She does use it for more than 4 hours a night. I did request a download and her AHI is down below 1 in appears to be working very good. We will not change her current settings of 4-18 APAP. 03/25/2023 the patient is here for pulmonary follow-up visit. Overall she is doing very well. The patient has been using her new APAP. The APAP AirSense 11 has not very affecting beneficial. Her AHI is down to 1.4. Her average pressure is close to 8.4 cm of water. She does average more than 4 hours a night. The therapy again has been affecting beneficial. The patient also continues have shortness breath with activity and cough. She has underlying chronic bronchitis and also COPD. She does well on Spiriva although is very expensive and not covered under her insurance. She did try Trelegy and also tried respiratory inhaler that was not effective for her. Therefore, she will go ahead and stick with the Spiriva and the Symbicort for now. The patient also had a CT scan of the chest last back in September 2022 which we personally reviewed and compared to the CT scan from 2021. She does have nodular disease bilaterally primarily in the lingula and also in the right middle lobe area. This is likely suggestive of smoldering infectious that she is mycobacterial disease. Will have her get further sputum samples from microbiology. The patient should have a repeat CT scan September 2023 to follow-up with the nodules. In the meantime she is going to continue with the current respiratory therapy and she will provide us with a sputum culture. 10/03/2023 the patient is here for a pulmonary follow-up visit. Overall the patient has been doing okay. She has been also active with exercise swimming and playing pickleball and walking. Sometimes she does have to use her rescue inhaler. She has noticed that she has had to use a little bit more often typically around twice a week. She sometimes pretreated before her pickleball tournaments. The patient also continues on the Symbicort. She is doing 1 puff of the Spiriva. In view of her ongoing symptoms she is going to maximize her respiratory therapy by increasing the Spiriva to 2 inhalations daily. We also talked about other potential triple agents but she did not do good with powder and she rather stay on the medications that she is taking since she tolerates it very well. She also had a CT scan of the chest to follow-up with the pulmonary nodules. We personally reviewed in the office in compared to her previous CT scan. No significant changes and no significant changes in the pulmonary nodule which is reassuring. She has had this nodule now for several years identified without any significant changes. Likely mycobacterial disease. Will go ahead and request another sputum for AFB and culture. From a CPAP standpoint she is struggling with her mask. She is opening up her mouth she is getting some air leakage. The patient did try a chinstrap was not effective. She needs a fullface mask. Will did provide her with a small F30 I mask. She is going to try and let us know if it works well for her and at that point we can order it for her from her [employer] company. But she does use the machine every night for more than 4 hours with very good adherence of 100%. Her AHI is down to 1.5 and her current settings are adequate. 10/02/2024 the patient is here for a pulmonary follow-up visit. Overall the patient has been doing well. She continues on the Symbicort and the Incruse. Although she did better on the Spiriva. Feel like the Spiriva device was a more effective for her. Unfortunately stopped being covered by insurance any longer. Therefore will keep her on the Symbicort and Incruse. We did talk about other alternatives including Breztri. In addition to that she can also consider using Combivent Respimat device. But right now she is doing well so we are not going to make any changes. Her last CT scan was back in September 2023 demonstrating stable pulmonary nodules. Will plan to repeat a CAT scan in a year's time. Her last PFTs were back from 2021 so therefore next year will also request pulmonary function studies. The patient has been using the CPAP. She is still struggling with the mask. I do believe the nasal pillows will probably be more effective for her. Will go ahead and set her up with [facility] mask clinic so she can look at other alternatives as well. The patient will follow-up in a year's time with a CAT scan and PFTs. If any issues arise prior to that she will call for further recommendations. [facility] Medical History (Updated 12/23/23 @ 17:14 by Georgette Black NP) COVID-19 LUIS on CPAP Pulmonary nodules GERD (gastroesophageal reflux disease) COPD (chronic obstructive pulmonary disease) Social History Patient Tobacco Use Status: Never used Tobacco Review of Systems Const Denies chills, Reports difficulty sleeping, Denies excessive sweating, Denies fever(s) and Denies night sweats Eyes Denies dry eyes, Denies irritation and Denies itchy eyes ENT Reports Normal hearing present, Denies nasal discharge and Denies post nasal drip Card Denies chest pain, Denies chest pain at rest, Denies chest pain with activity, Denies leg edema, Denies dyspnea, Reports dyspnea on exertion, Denies orthopnea and Denies paroxysmal nocturnal dyspnea Resp Denies chest congestion, Reports cough, Denies excessive phlegm production, Denies pain on inspiration, Denies pain with cough, Denies dyspnea, Reports dyspnea on exertion, Denies stridor and Reports wheezing Musc Denies myalgias Neuro Reports Normal hearing present Endo Denies excessive sweating Ronald/Lymph Denies lymphadenopathy Aller/Immun Denies itchy eyes, Denies seasonal rhinorrhea and Reports wheezing Physical Exam Vital Signs: Last Vital Signs Pulse 69 10/02/24 11:14 BP 114/60 10/02/24 11:14 Pulse Ox 97 10/02/24 11:14 Oxygen Delivery Method Room Air 10/02/24 11:14 BMI result Body Mass Index 30.6 Const General: cooperative, healthy appearing, comfortable, no acute distress, well developed and alert Orientation/consciousness: patient oriented x3 Limitations: no limitations HEENT Head: Yes normal to inspection, Yes normocephalic and Yes atraumatic Ears: hearing grossly normal bilaterally and external ears normal Eyes General: appearance normal, both eyes and all related structures Eyelids: Yes eyelids normal Sclerae: sclerae normal EOM: EOMs intact bilaterally Neck Neck: Yes normal visual inspection and Yes no lymphadenopathy Lymphatic: no lymphadenopathy noted Chest Chest palpation & inspection: normal inspection of the chest Resp Effort & Inspection: normal respiratory effort, able to speak in complete sentences, no stridor, not tachypneic, no tripod positioning and no use of accessory muscles Auscultation: no wheezes and diminished lung sounds Cardio Jugular venous distension: no JVD Rate: regular rate Rhythm: regular rhythm Skin Other: warm, dry General skin exam: no rashes or lesions noted Neuro General: patient oriented x3 Cranial nerves: Yes Normal hearing present Cognition (Neuro): normal cognition Gait exam (Neuro): Normal gait present Extrem General: Yes normal to inspection, Yes capillary refill normal, Yes no clubbing, cyanosis or edema and Yes no pedal edema Psych Appearance: grossly normal and well kempt Speech and movement: Normal speech and movement present and Clear speech present Affect: normal affect Attitude: cooperative Thought process: Normal thought process present Thought content: Normal thought content present Insight: Good insight present (Psych) Judgement: Good judgement present (Psych) Assessment & Plan Assessment & Plan (1) COPD (chronic obstructive pulmonary disease): Code(s): J44.9 - Chronic obstructive pulmonary disease, unspecified Category: Medical Qualifiers: COPD type: chronic bronchitis Chronic bronchitis type: simple Qualified Code(s): J41.0 - Simple chronic bronchitis (2) LUIS on CPAP: Code(s): G47.33 - Obstructive sleep apnea (adult) (pediatric); Z99.89 - Dependence on other enabling machines and devices Category: Medical (3) Pulmonary nodules: Code(s): R91.8 - Other nonspecific abnormal finding of lung field Category: Medical Plan continue Symbicort continue Incruse (Spiriva not covered) JESE as needed Continue APAP, Will reques mask clinic with [facility] to find a better fitting mask PFTs next yr CT chest next yr F/U in 12 months Orders: Orders PFT pulmonary function test 08/11/25 R91.8 - Other nonspecific abnormal finding of lung field CT chest wo IV con 08/11/25 R91.8 - Other nonspecific abnormal finding of lung field Medications: Changed From umeclidinium 62.5 mcg/actuation (Incruse Ellipta) 1 inh inhalation DAILY 30 days 30 ea 11RF J45.909 - Unspecified asthma, uncomplicated To umeclidinium 62.5 mcg/actuation (Incruse Ellipta) 1 inh inhalation DAILY 90 ea 3RF 90 days J45.909 - Unspecified asthma, uncomplicated From albuterol sulfate 90 mcg/actuation 2 inhalations inhalation Q6H PRN To albuterol sulfate 90 mcg/actuation 2 inhalations inhalation Q6H PRN 1 ea 11RF shortness of breath or wheezing 30 days Coding Level of Care Code Est Pt Level 4 (32168) Complex EM visit Add On G2211 Diagnoses Simple chronic bronchitis J41.0 COPD type: chronic bronchitis Chronic bronchitis type: simple LUIS on CPAP G47.33; Z99.89 Pulmonary nodules R91.8 Time Spent (min) 18
== END 2024-10-02 12:01 | disposition home or self-care (01) ==
LOC: HO.HPS 11:08
PROVIDERS: PCP Internal Medicine; Visit Provider Hospitalist
DX: J41.0 Simple chronic bronchitis (principal); G47.33 Obstructive sleep apnea (adult) (pediatric); Z99.89 Dependence on other enabling machines and devices; R91.8 Other nonspecific abnormal finding of lung field
CPT/HCPCS: 99214; G2211

== ENCOUNTER → 2024-10-02 11:08 | Outpatient (BNVA) | payer MEDICARE, SELFPAY | PROVIDERS: PCP Internal Medicine; Visit Provider Hospitalist | DX: J41.0 Simple chronic bronchitis (principal); G47.33 Obstructive sleep apnea (adult) (pediatric); R91.8 Other nonspecific abnormal finding of lung field; Z99.89 Dependence on other enabling machines and devices | CPT/HCPCS: 99212 ==